=== PATIENT | female | born 1955 | race Caucasian/White ===

== ENCOUNTER 2023-08-14 10:42 | Emergency (ER) | payer MEDICARE, MEDICAID, SELFPAY ==
[2023-08-14] VITALS (45 sets, daily range): BP systolic 89–137; BP diastolic 42–117; PULSE 91–106; RESP 16–30; TEMP 36.9–37; O2SAT 91–99
--- NOTE | ~2023-08-14 | CT_ITS ---
EXAMINATION: CT abdomen pelvis w con DATE: 08/14/2023 14:58 INDICATION: Left lower quadrant abdominal tenderness. TECHNIQUE: Computed tomography (CT) of the abdomen and pelvis was performed with 100 mL Omnipaque 350 intravenous contrast. Automated exposure control and iterative reconstruction technique were employe d. The dose-length product was 930.22 mGy-cm. COMPARISON: CT abdomen and pelvis 12/17/2016 FINDINGS: The visualized portions of the lung bases demonstrate mild atelectasis. There are trace ple ural effusions. The heart size is normal. There are coronary artery calcifications. There is a small pericardial effusion. There is severe intrahepatic biliary duct dilatation. There is a 13 mm cyst in the liver. The common duct is dilated to 16 mm. The gallbladder is absent. The spleen, pancreas, and adrenal glands are normal. There is cortical thinning in this kidneys. There is calcified atheroscler osis of the aorta and many of the other arteries. There are calcified fibroids in the uterus. The alejandro endix is not visualized. There is focal wall thickening of the transverse colon. There is a supraumb ilical hernia containing fat and a portion of the wall of the transverse colon. There is subcutaneous gas and stranding adjacent to the hernia. There are no pathologically enlarged lymph nodes. There is no free intraperitoneal fluid. IMPRESSION: 1. Focal wall thickening of the transverse colon suspicious for primary malignancy. 2. Supraumbilical ventral hernia containing fat and a portion of the wall of the thickened transverse colon. Subcutaneous gas and fat stranding in this area is suspicious for perforation of the wall of the transverse colon. 3. Severe intrahepatic and extrahepatic biliary duct dilatation, worsened from 12/17/2016. Reviewed, dictated and finalized at location E. OPERATOR IMPRESSION: 1. Focal wall thickening of the transverse colon suspicious for primary maligna ncy. 2. Supraumbilical ventral hernia containing fat and a portion of the wall of th e thickened transverse colon. Subcutaneous gas and fat stranding in this area i s suspicious for perforation of the wall of the transverse colon. 3. Severe intrahepatic and extrahepatic biliary duct dilatation, worsened from 12/17/2016.
--- NOTE | 2023-08-14 13:18 | PC.NURSE ---
call family member Robbin Jimenez w/ updates, cell [phone], gave update on pt status and POC at this time
--- NOTE | 2023-08-14 13:19 | ED.WOUNDLAC ---
HPI - Wound/Laceration General Chief Complaint: Wound/Laceration Stated Complaint: WOUND Time Seen by Provider: 08/14/23 12:05 History of Present Illness HPI narrative: Patient is a 67-year-old female presenting with abdominal pain. Patient states that for the last 3-4 days she has had redness and swelling in her left lower quadrant that is very painful to the touch. No nausea or vomiting. No constipation or diarrhea. No chest pain or shortness of breath. No fevers. Related Data Allergies Allergy/AdvReac Type Severity Reaction Status Date / Time codeine Allergy Unknown Verified 05/22/17 20:11 Sulfa (Sulfonamide Allergy Unknown Verified 05/22/17 20:11 Antibiotics) Review of Systems Review of Systems: All systems reviewed & are unremarkable except as noted in HPI and below Exam Narrative: GENERAL: Elderly female lying in bed in no acute distress HEAD: Normocephalic, atraumatic. EYES: PERRLA and EOMI. ENT: Mucous membranes dry NECK: Supple. CHEST: Clear to auscultation. No respiratory distress. HEART: Regular rate and rhythm ABDOMEN: Soft, cellulitis and superficial appearing abscess LLQ, tender with palpation, no guarding or rebound EXTREMITIES: No edema. SKIN: Warm, dry, as above NEURO: No focal deficits. Alert and oriented x3. PSYCH: Normal mood and affect. Course Vital Signs Vital signs: Vital Signs Temperature 98.5 F 08/14/23 10:49 Pulse Rate 106 H 08/14/23 10:49 Respiratory Rate 20 08/14/23 10:49 Pulse Oximetry 93 08/14/23 10:49 Oxygen Delivery Room Air 08/14/23 10:49 Temperature 98.6 F 08/14/23 11:01 Pulse Rate 93 08/14/23 18:00 Respiratory Rate 19 08/14/23 18:00 Blood Pressure 90/43 L 08/14/23 17:31 Pulse Oximetry 99 08/14/23 17:31 Oxygen Delivery Room Air 08/14/23 10:49 MDM - Wound/Laceration MDM Narrative Medical decision making narrative: 67-year-old female presenting with left lower quadrant pain, redness, swelling. Slightly tachycardic with some low pressures on arrival. She does look very dry. 2 L of fluids have been ordered. Blood work concerning for a white count of 28. Chronic anemia is noted. IV vancomycin, Rocephin, Flagyl as been ordered. Fluids ongoing. UA concerning for UTI. CT abdomen pelvis is concerning for a transverse colon mass that is partially contained within a supraumbilical ventral hernia. There surrounding subcutaneous gas and fat stranding that is concerning for perforation of the transverse colon. Concern for a new colocutaneous fistula. Spoke with our surgeon who advises transfer for higher level of care. I spoke with Dr. Hood with Colorectal surgery at [facility] was accepted the patient for transfer. Patient is agreeable with this plan. Transferred in hemodynamically stable condition. Differential Diagnosis Differential diagnosis: Likely abscess and other (Sepsis, UTI, fistula) Medical Records Attestation: I reviewed the patient's medical records. Lab Data Attestation: I reviewed the patient's lab results. 08/14/23 14:06 08/14/23 14:06 Labs: Lab Results 08/14/23 Range/Units 14:06 WBC 27.8 H (4.5-10.0) K/mm3 RBC 2.93 L (4.2-5.4) M/mm3 Hgb 8.8 L (12.0-15.0) g/dL Hct 28.5 L (37.0-47.0) % MCV 97.3 (80-100) fl MCH 30.0 (26-34) pg MCHC 30.9 L (32-36) g/dl RDW 14.4 (11.5-14.5) % Plt Count 355 (150-375) k/mm3 MPV 9.3 (7.4-10.4) fl Immature Gran % (Auto) Not Reportable Neut % (Auto) Not Reportable Lymph % (Auto) Not Reportable [place] % (Auto) Not Reportable Eos % (Auto) Not Reportable Baso % (Auto) Not Reportable Lymph # (Auto) Not Reportable [place] # (Auto) Not Reportable Eos # (Auto) Not Reportable Baso # (Auto) Not Reportable Abs Immat Gran (auto) Not Reportable Absolute Neuts (auto) Not Reportable Absolute Nucleated RBC Not Reportable Total Counted 100 Neutrophils % (Manual) 91 H (46-73) %
[2023-08-14] MEDS: SODIUM CHLORIDE 0.9% IV 1,000 ML 999 ML IV CONT ×3 (13:57→17:24)
[2023-08-14] MEDS: MORPHINE SULFATE (*CRX) 4 MG/ML INJ IV PUSH ×2 (13:57→15:48)
[2023-08-14 14:17] LABS: Hematocrit 28.5 % (37.0-47.0); Hemoglobin 8.8 g/dL (12.0-15.0); Mean Corpuscular HGB Conc 30.9 g/dl (32-36); Mean Corpuscular Volume 97.3 fl (80-100); Mean Platelet Volume 9.3 fl (7.4-10.4); Platelet Count Result 355 k/mm3 (150-375); Red Blood Count 2.93 M/mm3 (4.2-5.4); Red Cell Distribution Width 14.4 % (11.5-14.5); White Blood Count 27.8 K/mm3 (4.5-10.0)
[2023-08-14 14:27] LABS: Appearance Urine Turbid (Clear); Bacteria Urine 4+ /hpf; Bilirubin Urine Negative (Negative); Blood Urine 2+ (Negative); Color Urine Dark Yellow (Yellow); Glucose Urine UA Negative (Negative); Ketones Urine Trace mg/dL (Negative); Leukocyte Esterase Ur 3+ LEU/UL (Negative); Mucus Urine Present /lpf; Nitrate Urine Negative (Negative); Protein Urine 1+ mg/dL (Negative); RBC Urine 0-2 /hpf (0-2); Squamous Epithelial Cell Urine Moderate /hpf (Few); WBC Clumps Urine Present /HPF; WBC Urine >100 /hpf
[2023-08-14 14:28] LABS: Add Urine Microscopic? YES
[2023-08-14 14:32] LABS: Alanine Aminotransferase 30 U/L (6-35); Albumin Level 2.3 g/dL (3.5-5.1); Alkaline Phosphatase 168 U/L (38-126); Anion Gap 7 mmol/L (8-16); Aspartate Amino Transferase 46 U/L (14-36); Bilirubin,Total 0.6 mg/dL (0.2-1.3); Blood Urea Nitrogen 35 mg/dL (7-17); Calcium 7.4 mg/dL (8.4-10.2); Carbon Dioxide 26 mmol/L (22-30); Chloride 101 mmol/L (98-107); Estimated CRCL calculation 50 ml/min; Estimated Glomerular Filt Rate 55; Glucose 108 mg/dL (65-110); Potassium 4.2 mmol/L (3.4-5.0); Sodium 134 mmol/L (137-145)
[2023-08-14 14:33] LABS: Lactic Acid Reflex 1.5 mmol/L (0.7-2.0)
[2023-08-14 14:34] LABS: Band Neutrophils Percent 6 % (0-6); Lymphocytes Absolute Manual 0.27 K/mm3 (1.1-4.5); Monocytes Absolute Manual 0.55 K/mm3 (0.1-0.90); Monocytes Percent Manual 2 % (3-9); Neutrophils Absolute Manual 26.96 K/mm3 (1.7-7.2); Neutrophils Percent Manual 91 % (46-73); Total Cells Counted 100
[2023-08-14 14:35] LABS: Hypochromasia 1+ (NORMAL); Platelet Estimate Adequate (Adequate); Schistocytes None Seen (NORMAL)
[2023-08-14 14:44] LABS: Lipase < 10 U/L (23-300)
[2023-08-14] MEDS: cefTRIAXone 2 GM/NS 100 ML 2 GM/100 ML BAG IVPB (15:01)
[2023-08-14] MEDS: VANCOMYCIN 1,500 MG/NS 500 ML 1,500 MG/500 ML BAG 250 MG IVPB (16:13)
[2023-08-14] MEDS: MORPHINE SULFATE (*CRX) 4 MG/ML INJ (18:37)
== END 2023-08-14 18:38 | disposition short-term general hospital (02) ==
LOC: ANHED 12:42
PROVIDERS: Emergency Provider Emergency Medicine; PCP Internal Medicine
DX: A41.9 Sepsis, unspecified organism (principal); N39.0 Urinary tract infection, site not specified; K63.89 Other specified diseases of intestine; K63.2 Fistula of intestine; K43.9 Ventral hernia without obstruction or gangrene; R93.2 Abnormal findings on diagnostic imaging of liver and biliary tract; T84.194A Other mechanical complication of internal fixation device of right femur, initial encounter; Y84.8 Other medical procedures as the cause of abnormal reaction of the patient, or of later complication, without mention of misadventure at the time of the procedure; M16.11 Unilateral primary osteoarthritis, right hip
CPT/HCPCS: 36415; 74177; 80053; 81001; 83605; 83690; 85025; 87040; 87077; 87086; 87186; 96361; 96365; 96366; 96367; 96375; 96376; 99285; J0696; J2270; J3370; J7030; Q9967